=== PATIENT | female | born 1940 | race Caucasian/White ===

== ENCOUNTER → 2017-01-12 | Outpatient (CLI) | payer MEDICARE ==
--- NOTE | 2017-01-12 10:32 | US ---
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 Headaches EXAM MEASUREMENTS: RIGHT: Peak Systolic Velocity (PSV) cm/sec ----- Right CCA: 51.0 ----- Right ICA: 74.2 ----- Right ECA: 91.9 ICA/CCA ratio: 1.5 RIGHT: End Diastole cm/sec ----- Right CCA: 11.8 ----- Right ICA: 13.7 ----- Right ECA: 6.3 LEFT: Peak Systolic Velocity (PSV) cm/sec ----- Left CCA: 66.9 ----- Left ICA: 87.8 ----- Left ECA: 75.7 ICA/CCA ratio: 1.3 LEFT: End Diastole cm/sec ----- Left CCA: 12.0 ----- Left ICA: 29.6 ----- Left ECA: 8.7 VERTEBRALS (direction of flow): Right Vertebral: Antegrade Left Vertebral: Antegrade Mild atherosclerotic changes noted bilaterally. No hemodynamically significant stenosis. Limited due to tortuosity of vessels and CCA branching high in neck. Grayscale, color Doppler, spectral Doppler imaging performed of the carotid arteries IMPRESSION: No hemodynamic significant stenosis of the proximal internal carotid arteries bilaterall y by Doppler criteria, an indirect measurement of carotid stenosis
--- NOTE | 2017-01-12 12:08 | ECHOF ---
Referral Reason:I34.0 MV insufficiency MEASUREMENTS -------- HEIGHT: 127.0 cm WEIGHT: 59.0 kg BP: 170/74 RVIDd: 2.4 cm (< 3.3) IVSd: 1.0 cm (0.6 - 1.1) LVIDd: 4.3 cm (3.9 - 5.3) LVPWd: 0.8 cm (0.6 - 1.1) IVSs: 1.6 cm LVIDs: 2.7 cm LVPWs: 1.1 cm LA Diam: 3.6 cm (2.7 - 3.8) LAESV Index (A-L): 32.40 ml/m Ao Diam: 3.3 cm (2.0 - 3.7) AV Cusp: 1.7 cm (1.5 - 2.6) LA Diam: 3.5 cm (2.7 - 3.8) MV EXCURSION: 10.022 mm (> 18.000) MV EF SLOPE: 64 mm/s (70 - 150) EPSS: 0.5 cm MV E Greg: 0.47 m/s MV DecT: 303 ms MV A Greg: 0.80 m/s MV E/A Ratio: 0.58 RAP: 5.00 mmHg RVSP: 33.39 mmHg FINDINGS -------- Sinus rhythm. This was a technically good study. There is mild concentric left ventricular hypertrophy. Overall left ventricular systolic function is low-normal with, an EF between 50 - 55 %. The right ventricle is normal in size. LA is midly dilated 29-33ml/m2. The right atrial size is normal. There is mild aortic valve sclerosis. There is no evidence of aortic regurgitation. Mild mitral annular calcification present. Mild mitral regurgitation is present. Mild tricuspid regurgitation present. There is no evidence of pulmonary hypertension. The right ventricular systolic pressure, as measured by Doppler, is 33.39mmHg. There is no pulmonic regurgitation present. The aortic root size is normal. There is no pericardial effusion. CONCLUSIONS -------- 1. There is mild concentric left ventricular hypertrophy. 2. Overall left ventricular systolic function is low-normal with, an EF between 50 - 55 %. 3. LA is midly dilated 29-33ml/m2. 4. There is mild aortic valve sclerosis. 5. Mild mitral annular calcification present. 6. Mild mitral regurgitation is present. 7. Mild tricuspid regurgitation present. 8. There is no evidence of pulmonary hypertension. 9. The right ventricular systolic pressure, as measured by Doppler, is 33.39mmHg. TERRAZZO ROLLER: Priscilla Caballero RDCS
== END | disposition home or self-care (01) ==
LOC: RADUSMAIN 09:17
PROVIDERS: ATTEND Internal Medicine Geriatric Medicine
DX: I34.0 Nonrheumatic mitral (valve) insufficiency (principal); I65.29 Occlusion and stenosis of unspecified carotid artery
CPT/HCPCS: 93306; 93880

== ENCOUNTER → 2017-07-05 | Outpatient (CLI) | payer MEDICARE ==
--- NOTE | 2017-07-06 13:52 | MM ---
Reason for exam: screening (asymptomatic). Last mammogram was performed 1 year and 1 month ago. History: Patient is postmenopausal. Benign MG stereo VAD BX LT of the left breast, March 19, 2014. Benign right mammotome panel of the right breast, February 28, 2007. Took estrogen for 9 years beginning at age 51. Took progesterone for 9 years beginning at age 51. Physical Findings: A clinical breast exam by your physician is recommended on an annual basis and results should be correlated with mammographic findings. MG Screening Mammo w CAD Bilateral CC and MLO view(s) were taken. Prior study comparison: June 10, 2016, bilateral MG screening mammo w CAD. May 07, 2015, bilateral MG screening mammo w CAD. The breast tissue is heterogeneously dense. This may lower the sensitivity of mammography. No suspicious abnormality in the left breast. There is a new 5mm asymmetry in the outer right breast at middle depth. ASSESSMENT: Incomplete: need additional imaging evaluation, BI-RAD 0 RECOMMENDATION: Special view mammogram of the right breast. If lesion persists on supplemental views, image directed ultrasound is recommended. [facility] will attempt to contact patient to return for supplemental views and ultrasound if indicated.
== END | disposition home or self-care (01) ==
LOC: RADMAMWWP 14:26
PROVIDERS: ATTEND Internal Medicine Geriatric Medicine
DX: Z12.31 Encounter for screening mammogram for malignant neoplasm of breast (principal)
CPT/HCPCS: 77067

== ENCOUNTER → 2017-07-14 | Outpatient (CLI) | payer MEDICARE ==
--- NOTE | 2017-07-14 10:04 | MM ---
Reason for exam: additional evaluation requested from abnormal screening. Last mammogram was performed less than 1 month ago. History: Patient is postmenopausal. Benign MG stereo VAD BX LT of the left breast, March 19, 2014. Benign right mammotome panel of the right breast, February 28, 2007. Took estrogen for 9 years beginning at age 51. Took progesterone for 9 years beginning at age 51. Physical Findings: Nurse did not find any significant physical abnormalities on exam. MG Work Up Mamm w CAD RT CC and MLO view(s) were taken of the right breast. Prior study comparison: July 05, 2017, bilateral MG screening mammo w CAD. June 10, 2016, bilateral MG screening mammo w CAD. May 07, 2015, bilateral MG screening mammo w CAD. March 06, 2014, bilateral MG screening mammo w CAD. January 04, 2013, bilateral digital screening mammo w/CAD. The breast tissue is heterogeneously dense. This may lower the sensitivity of mammography. No persisting abnormalities on the LM view, with tight spot compression asymmetric densities become less pronounced. 6 month follow up is recommended. These results were verbally communicated with the patient and result sheet given to the patient on 07/14/17. ASSESSMENT: Probably benign, BI-RAD 3 RECOMMENDATION: Follow-up diagnostic mammogram of the right breast in 6 months.
== END | disposition home or self-care (01) ==
LOC: RADMAMWWP 09:12
PROVIDERS: ATTEND Internal Medicine Geriatric Medicine
DX: R92.8 Other abnormal and inconclusive findings on diagnostic imaging of breast (principal)
CPT/HCPCS: 77065

== ENCOUNTER → 2017-12-08 | Outpatient (CLI) | payer MEDICARE ==
--- NOTE | 2017-12-08 12:51 | MR ---
EXAMINATION TYPE: MR cervical spine wo con DATE OF EXAM: 12/08/2017 COMPARISON: NONE HISTORY: 77-year-old female Neck and shoulder pain TECHNIQUE: Multiplanar, multisequence images of the cervical spine were acquired. Findings: Partially empty sella incidentally noted. No craniocervical junction of the body, predental space widening, or prevertebral soft tissue swellin g. 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 There is moderate multilevel degenerative disc disease with degenerated, desiccated, and narrowed dis cs with disc osteophyte complexes. Trace grade 1 retrolisthesis at C5-C6. Scattered ligamentum flavum thickening and facet and uncovertebral joint degenerative changes also pr esent. At C2-C3, mild left-sided facet arthropathy without significant canal or foraminal stenosis. At C3-C4, uncovertebral joint and facet degenerative change contributes to mild left neuroforaminal s tenosis. No significant spinal canal stenosis. At C4-C5, there is broad-based disc osteophyte complex with ligamentum flavum thickening and left gre ater than right facet/uncovertebral joint arthropathy. Changes result in moderate left neuroforaminal stenosis with very mild narrowing of the spinal canal. At C5-C6, there is disc osteophyte complex, facet arthropathy, ligamentum flavum thickening, and left greater than right uncovertebral joint arthropathy. There is a trace grade 1 retrolisthesis and mild spinal canal stenosis with near abutment of both the dorsal and ventral cord but no cord flattening. Changes result in a severe left and moderate right neuroforaminal stenosis at this level. At C6-C7, discussed by complex with uncovertebral joint and facet degenerative change. This causes ve ry mild narrowing of the spinal canal with moderate left greater than right neuroforaminal stenosis. At C7-T1, mild facet degenerative change without canal or foraminal stenosis. No suspicious bone marrow replacement. No T2-weighted cord signal abnormality. IMPRESSION: 1. Moderate multilevel degenerative disc disease as well as scattered ligamentum flavum thickening an d moderate to marked facet and uncovertebral joint arthropathy. 2. Trace degenerative grade 1 retrolisthesis at C5-C6. The remaining alignment is maintained. 3. At C5-C6, changes cause a mild overall spinal canal stenosis with near abutment of both the dorsal and ventral cord but no cord flattening. Severe left and moderate right neuroforaminal stenosis here . 4. Lesser degree of mild canal narrowing at C3-C4, C4-C5, and C6-C7. No sekou canal compromise. 5. Additional variable moderate neuroforaminal stenoses as outlined above. 6. 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
== END | disposition home or self-care (01) ==
LOC: RADMRIMAIN 10:46
PROVIDERS: ATTEND Internal Medicine Rheumatology
DX: M48.02 Spinal stenosis, cervical region (principal); M99.71 Connective tissue and disc stenosis of intervertebral foramina of cervical region; M43.12 Spondylolisthesis, cervical region; M50.30 Other cervical disc degeneration, unspecified cervical region; M46.82 Other specified inflammatory spondylopathies, cervical region
CPT/HCPCS: 72141

== ENCOUNTER → 2018-01-20 | Outpatient (CLI) | payer MEDICARE ==
--- NOTE | 2018-01-22 09:59 | MM ---
Reason for exam: follow-up at short interval from prior study. Last mammogram was performed 6 months ago. History: Patient is postmenopausal. Benign MG stereo VAD BX LT of the left breast, March 19, 2014. Benign right mammotome panel of the right breast, February 28, 2007. Took estrogen for 9 years beginning at age 51. Took progesterone for 9 years beginning at age 51. Physical Findings: Nurse did not find any significant physical abnormalities on exam. MG Diagnostic Mammo RT w CAD CC and MLO view(s) were taken of the right breast. Prior study comparison: July 14, 2017, right breast MG work up mamm w CAD RT. July 05, 2017, bilateral MG screening mammo w CAD. June 10, 2016, bilateral MG screening mammo w CAD. The breast tissue is heterogeneously dense. This may lower the sensitivity of mammography. Finding: There are benign vascular, round calcifications in the right breast. No discrete abnormality right breast. These results were verbally communicated with the patient and result sheet given to the patient on 01/20/18. ASSESSMENT: Benign, BI-RAD 2 RECOMMENDATION: Return to routine screening mammogram schedule for both breasts.
== END | disposition home or self-care (01) ==
LOC: RADMAMWWP 12:57
PROVIDERS: ATTEND Internal Medicine Geriatric Medicine
DX: R92.8 Other abnormal and inconclusive findings on diagnostic imaging of breast (principal)
CPT/HCPCS: 77065

== ENCOUNTER → 2018-09-09 | Outpatient (CLI) | payer MEDICARE ==
--- NOTE | 2018-09-12 07:58 | MM ---
Reason for exam: screening (asymptomatic). Last mammogram was performed 8 months ago. History: Patient is postmenopausal. Benign MG stereo VAD BX LT of the left breast, March 19, 2014. Benign right mammotome panel of the right breast, February 28, 2007. Took estrogen for 9 years beginning at age 51. Took progesterone for 9 years beginning at age 51. Physical Findings: A clinical breast exam by your physician is recommended on an annual basis and results should be correlated with mammographic findings. MG Screening Mammo w CAD Bilateral CC and MLO view(s) were taken. Prior study comparison: January 20, 2018, right breast MG diagnostic mammo RT w CAD. July 14, 2017, right breast MG work up mamm w CAD RT. The breast tissue is heterogeneously dense. This may lower the sensitivity of mammography. There are benign appearing round calcifications bilaterally. Previous mammotome biopsy in the left breast. There is no discrete abnormality. ASSESSMENT: Benign, BI-RAD 2 RECOMMENDATION: Routine screening mammogram of both breasts in 1 year.
== END | disposition home or self-care (01) ==
LOC: RADMAMWWP 10:09
PROVIDERS: ATTEND Internal Medicine Geriatric Medicine
DX: Z12.31 Encounter for screening mammogram for malignant neoplasm of breast (principal)
CPT/HCPCS: 77067

== ENCOUNTER → 2020-02-08 | Outpatient (CLI) | payer MEDICARE ==
--- NOTE | 2020-02-08 18:40 | ECHOF ---
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 This was a technically adequate study. The left ventricular size is normal. Left ventricular wall thickness is normal. Overall left vent ricular systolic function is mildly impaired with, an EF between 45 - 50 %. The right ventricle is normal in size. Normal LA size by volume 22+/-6 ml/m2. The right atrial size is normal. There is mild aortic valve sclerosis. There is mild aortic regurgitation. Mild mitral annular calcification present. Mild mitral regurgitation is present. [id number] tricuspid regurgitation present. Right ventricular systolic pressure is normal at < 35 mmHg. The right ventricular systolic pressure, as measured by Doppler, is 31.53mmHg. Trace/mild (physiologic) pulmonic regurgitation. The aortic root size is normal. There is no pericardial effusion. CONCLUSIONS -------- 1. Left ventricular wall thickness is normal. 2. Overall left ventricular systolic function is mildly impaired with, an EF between 45 - 50 %. 3. Normal LA size by volume 22+/-6 ml/m2. 4. There is mild aortic valve sclerosis. 5. There is mild aortic regurgitation. 6. Mild mitral regurgitation is present. 7. [id number] tricuspid regurgitation present. 8. Trace/mild (physiologic) pulmonic regurgitation. TATTOO TECHNICIAN: Priscilla Caballero RDCS
== END | disposition home or self-care (01) ==
LOC: RADECHMAIN 15:48
PROVIDERS: ATTEND Internal Medicine Geriatric Medicine
DX: I08.3 Combined rheumatic disorders of mitral, aortic and tricuspid valves (principal)
CPT/HCPCS: 93306

== ENCOUNTER → 2020-02-26 | Outpatient (CLI) | payer MEDICARE ==
--- NOTE | 2020-02-26 14:11 | ECHOS ---
STRESS ECHOCARDIOGRAM LUMASON: - Vial INDICATIONS: Heart disease. MEDICATIONS: Metformin, Amlodipine, Benazpril, Carvidiolol, Humira, Lantus, Glipizide. BASELINE HEART RATE: 65 BASELINE BLOOD PRESSURE: 180/68 MAXIMUM HEART RATE: 121 MAXIMUM BLOOD PRESSURE: 190/63 85% MPHR: 119 100% MPHR: 140 METS: 5.8 MAXIMUM STAGE REACHED: 2 TOTAL EXERCISE TIME: 4:00 CLINICAL INFORMATION: Baseline rhythm is a sinus mechanism, rate of 65, normal axis and intervals. Normal echocardiogram. Baseline blood pressure 180/68 mmHg. Patient exercised on Ranjit protocol for 4 minute reaching peak rate 121 beats per minute which is equal to 86% maximum predicted heart rate. Peak blood pressure 190/83 mmHg. Test was terminated due to fatigue. There were no chest pains. Electrocardiograph monitoring revealed a [address]-segment depression that improved in recovery. FINDINGS: Baseline echocardiogram revealed mild global hypokinesis at peak exercise, there is a mild area of worsening hypokinesis involving the apical anteroseptal wall. RESULT: 1. Average exercise tolerance with borderline positive electrocardiograph stress testing. 2. Abnormal stress echocardiogram with evidence of stress-induced ischemia involving the apical anteroseptal wall. MMODL / IJN: [id number] /
== END | disposition home or self-care (01) ==
LOC: RADNMMAIN 09:28
PROVIDERS: ATTEND Nurse Practitioner Gerontology
DX: R94.39 Abnormal result of other cardiovascular function study (principal); I08.3 Combined rheumatic disorders of mitral, aortic and tricuspid valves; I37.1 Nonrheumatic pulmonary valve insufficiency; I25.89 Other forms of chronic ischemic heart disease
CPT/HCPCS: 93351

== ENCOUNTER → 2020-03-14 | Day surgery (SDC) | payer MEDICARE ==
[2020-03-08 17:38] VITALS: BMI 24.6
[~2020-03-14] MED LIST: ADALIMUMAB SQ SCH; ALPRAZolam 0.25 MG TAB PO PRN; ALPRAZolam 0.5 MG TAB PO PRN; AMLODIPINE BESYLATE PO SCH; ASPIRIN 325 MG TAB PO ONE; ASPIRIN 81 MG ONE; BENAZEPRIL PO SCH; IOPAMIDOL-370 125ML BTL INJ ONE; LIDOCAINE 1% INJ 10MG/ML (20 ML MDV) SQ ONE; NITROGLYCERIN SL TABS 0.4 MG TAB SUBLINGUAL PRN; NON FORMULARY DRUG (Aspirin [Adult Low Dose Aspirin Ec] 81 MG Tablet.Dr) PO SCH; NON FORMULARY DRUG (Calcium Carbonate [Calcium] 600 MG Tablet) PO SCH; NON FORMULARY DRUG (Insulin Glargine 100 UNIT/ML Vial) SQ SCH; RX INFO: IV CONTRAST WAS GIVEN 1 EACH MISC MISCELLANE PRN; SODIUM CHLORIDE 0.9% 1,000 ML IV SCH; SODIUM CHLORIDE 0.9% 1,000 ML in EMPTY BAG 1 BAG IV ONE; VERAPAMIL SYRINGE (5 MG/10 ML) INTRAARTER ONE; [UNRECOGNIZED DRUG - OTHER] PO SCH; carvediloL 6.25 MG TAB PO SCH; fentaNYL (PF) 50 MCG/ML 2 ML AMP IV ONE; predniSONE 5 MG TAB PO SCH
[2020-03-14 06:35] LABS: Glucose,Whole Blood 143 mg/dL (75-99)
[2020-03-14 06:43] LABS: Basophils # (A) 0.1 k/uL (0-0.2); Basophils % (A) 1 %; Eosinophils # (A) 0.2 k/uL (0-0.7); Eosinophils % (A) 2 %; HCT 39.7 % (34.0-46.0); Lymphocytes # (A) 2.2 k/uL (1.0-4.8); Lymphocytes % (A) 32 %; MCH 28.5 pg (25.0-35.0); MCHC 32.7 g/dL (31.0-37.0); MCV 87.3 fL (80.0-100.0); Mean Platelet Volume 7.3; Monocytes # (A) 0.5 k/uL (0-1.0); Monocytes % (A) 7 %; Neutrophils # (A) 3.9 k/uL (1.3-7.7); Neutrophils % (A) 57 %; Platelet Count 222 k/uL (150-450); RBC 4.55 m/uL (3.80-5.40); RDW 13.3 % (11.5-15.5); WBC 6.9 k/uL (3.8-10.6)
[2020-03-14 06:45] VITALS: RESP 18; TEMP 98.7
[2020-03-14 06:52] LABS: Calcium 9.9 mg/dL (8.4-10.2)
[2020-03-14] MEDS: MIDAZOLAM 2 MG/2 ML VIAL IV ONE ×2 (07:58→08:05)
[2020-03-14 12:59] VITALS: BP 126/68; PULSE 52
--- NOTE | 2020-03-14 16:42 | CC ---
CARDIAC CATHETERIZATION REPORT Mrs. Khoury is an 79-year-old female with a known history of hypertension and diabetes mellitus who has been complaining of some dyspnea and vague discomfort in the chest. She underwent a stress echocardiogram that revealed evidence of inducible ischemia. In view of that, recommendation was made regarding cardiac catheterization. The procedure, its risks and complications were discussed with the patient, who was in full understanding and agreement. PROCEDURE DESCRIPTION: Patient was brought to the laborer yard in a fasting, semi-sedated state after receiving fentanyl and Benadryl and achieving moderate conscious sedated state. Using Xylocaine anesthesia and Seldinger technique, a 6-Maori sheath was introduced in the right radial artery. Selective right and left coronary angiography was performed using 5- Maori 3-1/2 bend right and left Bernadette catheters. Multiple views were taken of the arteries, including hemiaxial views. Following that, a 5-Maori tight pigtail catheter was introduced into the left ventricle and a 30-degree GILLIAM view of the left ventricle was obtained. Following that, catheter and sheath were removed. Hemostasis was obtained with deployment of a TR band. There was no immediate complication. Patient was returned to her room in stable condition. Of note, the patient received 3000 units of intravenous heparin as well as intra-arterial verapamil. FINDINGS: FLUOROSCOPY: There was mild calcification involving the proximal LAD. LEFT MAIN: This is a large-sized vessel bifurcating into left circumflex and left anterior descending artery. Left main coronary artery has no evidence of high-grade stenosis. LEFT ANTERIOR DESCENDING ARTERY: This is a large-sized vessel reaching toward the apex with a wrap around the apex segment giving rise to a large diagonal branch. At the takeoff of the diagonal branch there is calcification noted involving the LAD. The LAD at that segment as well as the diagonal branch has about 30% plaque. The rest of the vessel has no high-grade stenosis. LEFT CIRCUMFLEX: This is a nondominant vessel giving rise to a large obtuse marginal branch. The left circumflex has mild intimal disease of 10% to 20% without any evidence of high-grade stenosis. RIGHT CORONARY ARTERY: This is a large dominant vessel bifurcating distally into PDA and posterolateral segment and branches. The right coronary artery in mid segment has a 20% plaque. The rest of the vessel has no high-grade stenosis. LEFT VENTRICULOGRAM: Left ventriculogram was performed in 30-degree GILLIAM view and revealed normal left ventricular size and systolic function. Ejection fraction is 55%. There was no significant mitral regurgitation. HEMODYNAMICS: There was no gradient across the aortic valve. The left ventricular end- diastolic pressure is about 20 mmHg. CONCLUSION: 1. Calcified left anterior descending artery. 2. Mild triple-vessel coronary artery disease. 3. Preserved left ventricular size and systolic function. RECOMMENDATIONS: In view of findings and anatomy, I have recommended continued medical therapy with the aggressive coronary risk modifications that have been initiated. Those findings and recommendations were discussed with the patient and her family, and they are in full understanding and agreement. Duration of sedation was 17 minutes. MMODL / IJN: [id number] /
--- NOTE | 2020-03-14 16:48 | LTR ---
March 14, 2020 To: Dr. Gal Mckenzie Re: Noemi Khoury (38) Dear Dr. Mckenzie, I had the pleasure of performing cardiac catheterization on Mrs. Khoury at [facility] on March 14, and a full copy of the procedure note is being forwarded to you. In brief, she was found to have calcified left anterior descending artery with mild triple-vessel coronary artery disease, and based on those findings I have recommended continued medical therapy with the aggressive coronary risk modifications that have been initiated. Thank you again for allowing me to participate in her care. Please feel free to call with any questions. Sincerely yours, Margarita Sexton M.D. ADRIÁN / ESTELLE: [id number] /
== END ==
LOC: CATHCVL 06:08
PROVIDERS: ATTEND Internal Medicine Interventional Cardiology
DX: I25.10 Atherosclerotic heart disease of native coronary artery without angina pectoris (principal); R94.39 Abnormal result of other cardiovascular function study; R06.00 Dyspnea, unspecified; R07.89 Other chest pain; I42.8 Other cardiomyopathies; R53.83 Other fatigue; I10 Essential (primary) hypertension; E11.9 Type 2 diabetes mellitus without complications; R01.1 Cardiac murmur, unspecified; Z98.890 Other specified postprocedural states; Z79.4 Long term (current) use of insulin; Z79.899 Other long term (current) drug therapy; Z79.52 Long term (current) use of systemic steroids; Z88.1 Allergy status to other antibiotic agents; Z90.49 Acquired absence of other specified parts of digestive tract; Z87.891 Personal history of nicotine dependence; Z82.3 Family history of stroke
CPT/HCPCS: 93458; 80048; 85025; C1769; C1894; J2250; J2001; J3010; J1644; Q9967

== ENCOUNTER → 2020-05-13 | Outpatient (CLI) | payer MEDICARE ==
--- NOTE | 2020-05-14 07:17 | US ---
EXAMINATION TYPE: US kidneys/renal and bladder DATE OF EXAM: 05/13/2020 COMPARISON: CT 06/06/2017, 06/12/2016 CLINICAL HISTORY: N30.21 CHRONIC CYSTITIS. EXAM MEASUREMENTS: Right Kidney: 9.0 x 5.0 x 4.6 cm Left Kidney: 9.7 x 4.1 x 3.5 cm Post Void Residual Volume: 150 mL Right Kidney: No hydronephrosis. Cyst visualized upper pole measuring 2cm. Possible parapelvic cyst visualized Left Kidney: No hydronephrosis or masses seen Bladder: wnl Bilateral Jets seen: yes Normal Post Void Residual: No no hydronephrosis or nephrolithiasis. IMPRESSION: Right renal cysts stable from previous CT scan.
== END | disposition home or self-care (01) ==
LOC: RADUSWWP 16:16
PROVIDERS: ATTEND Urology
DX: N28.1 Cyst of kidney, acquired (principal); N30.21 Other chronic cystitis with hematuria; Z88.1 Allergy status to other antibiotic agents; Z88.5 Allergy status to narcotic agent
CPT/HCPCS: 76770

== ENCOUNTER → 2020-05-24 | Outpatient (CLI) | payer MEDICARE ==
--- NOTE | 2020-05-27 11:46 | MM ---
Reason for exam: screening (asymptomatic). Last mammogram was performed 1 year and 8 months ago. History: Patient is postmenopausal. Benign MG stereo VAD BX LT of the left breast, March 19, 2014. Benign right mammotome panel of the right breast, February 28, 2007. Took estrogen for 9 years beginning at age 51. Took progesterone for 9 years beginning at age 51. Physical Findings: A clinical breast exam by your physician is recommended on an annual basis and results should be correlated with mammographic findings. MG Screening Mammo w CAD Bilateral CC and MLO view(s) were taken. Prior study comparison: September 09, 2018, bilateral MG screening mammo w CAD. January 20, 2018, right breast MG diagnostic mammo RT w CAD. The breast tissue is heterogeneously dense. This may lower the sensitivity of mammography. Stable benign calcifications. There is no discrete abnormality. No significant changes when compared with prior studies. ASSESSMENT: Benign, BI-RAD 2 RECOMMENDATION: Routine screening mammogram of both breasts in 1 year.
== END | disposition home or self-care (01) ==
LOC: RADMAMWWP 16:13
PROVIDERS: ATTEND Internal Medicine Geriatric Medicine
DX: Z12.31 Encounter for screening mammogram for malignant neoplasm of breast (principal)
CPT/HCPCS: 77067

== ENCOUNTER → 2021-02-26 | Outpatient (CLI) | payer MEDICARE ==
--- NOTE | 2021-02-27 09:08 | XR ---
Abdomen HISTORY: Right-sided lower abdominal cramping, R 10.84 Frontal view the abdomen submitted, no comparisons Surgical clips are present in the right upper quadrant. There is no evident bowel obstruction or pneu moperitoneum, gas pattern is nonspecific. Bone mineralization is within normal limits. Lung bases not entirely included on the exam. Probable phleboliths are present within the pelvis. IMPRESSION: Postop change.
== END | disposition home or self-care (01) ==
LOC: RADXRMAIN 16:35
PROVIDERS: ATTEND Nurse Practitioner Gerontology
DX: R10.31 Right lower quadrant pain (principal); Z98.890 Other specified postprocedural states
CPT/HCPCS: 74018

== ENCOUNTER 2022-06-07 09:33 | Emergency (ER) | payer MEDICARE ==
[2022-06-07] MEDS ORDERED: SODIUM CHLORIDE 0.9% 1,000 ML IV ONE (10:34)
[2022-06-07] MEDS ORDERED: DIPHENOX-ATROP 2.5-0.025 MG 1 EACH TAB PO STA (10:34)
--- NOTE | 2022-06-07 10:36 | ED ---
General Adult HPI - General Chief complaint: Nausea/Vomiting/Diarrhea Stated complaint: Diarrhea Time Seen by Provider: 06/07/22 09:50 Source: patient, RN notes reviewed, old records reviewed Mode of arrival: ambulatory Limitations: no limitations - History of Present Illness Initial comments: This is an 81-year-old female presents emergency department stating that on Wednesday she was having vomiting and diarrhea. Patient states yesterday she no longer had any vomiting but continued to have diarrhea and again today she started having diarrhea and talk to her primary medical care doctor and he told to come to the emergency department. Patient states she worries that she's dehydrated. Patient denies any abdominal pain. Patient denies any fever c hills. Patient denies any chest pain or difficulty breathing. Patient denies having any antibiotics in the last couple of weeks. Patient denies any lightheadedness dizziness. Patient denies headache patient denies numbness weakness. - Related Data Home Medications Medication Instructions Recorded Confirmed Adalimumab [Humira] 10 mg SQ Q14D 06/06/17 03/14/20 Calcium Carbonate [Calcium] 600 mg PO DAILY 06/06/17 03/14/20 Insulin Glargine [Lantus] 10 unit SQ HS 06/06/17 03/14/20 amLODIPine BESYLATE/BENAZEPRIL 1 cap PO DAILY 06/06/17 03/14/20 [amLODIPine BESYLATE/BENAZEPRIL 5-40 mg] carvediloL [Coreg] 6.25 mg PO BID 06/06/17 03/14/20 glipiZIDE [Glucotrol] 10 mg PO BID 06/06/17 03/14/20 metFORMIN HCL [Glucophage] 500 mg PO BID 06/06/17 03/14/20 Aspirin [Adult Low Dose Aspirin EC] 81 mg PO DAILY 03/08/20 03/14/20 Cannabidiol (Cbd) [Epidiolex] 1 dose TOPICAL DAILY PRN 03/08/20 03/14/20 Cranberry Fruit Extract [Cranberry] 200 mg PO DAILY 03/08/20 03/14/20 predniSONE 5 mg PO DAILY 03/08/20 03/14/20 Allergies Allergy/AdvReac Type Severity Reaction Status Date / Time cephalexin [From Keflex] Allergy Rash/Hives Verified 06/07/22 09:48 morphine Allergy Nausea & Verified 06/07/22 09:48 Vomiting Review of Systems ROS Statement: Those systems with pertinent positive or pertinent negative responses have been documented in the HPI. ROS Other: All systems not noted in ROS Statement are negative. Past Medical History Past Medical History: Diabetes Mellitus, Hypertension, Myocardial Infarction ([place]), Pulmonary Embolus ([place]), Rheumatoid Arthritis ([place]) Last Myocardial Infarction Date:: unknown History of Any Multi-Drug Resistant Organisms: None Reported Past Surgical History: Cholecystectomy, Heart Catheterization Additional Past Surgical History / Comment(s): frozen shoulder lt Past Anesthesia/Blood Transfusion Reactions: Motion Sickness, Postoperative Nausea & Vomiting (PONV) Past Psychological History: No Psychological Hx Reported Smoking Status: Never smoker Past Alcohol Use History: None Reported Past Drug Use History: None Reported General Exam - General Exam Comments Initial Comments: GENERAL: Patient is well-developed and well-nourished. Patient is nontoxic and well- hydrated and is in no acute distress. ENT: Neck is soft and supple. No significant lymphadenopathy is noted. Oropharynx is clear. Moist mucous membranes. Neck has full range of motion without eliciting any pain. EYES: The sclera were anicteric and conjunctiva were pink and moist. Extraocular movements were intact and pupils were equal round and reactive to light. Eyelids were unremarkable. PULMONARY: Unlabored respirations. Good breath sounds bilaterally. No audible rales rhonchi or wheezing was noted. CARDIOVASCULAR: There is a regular rate and rhythm without any murmurs gallops or rubs. ABDOMEN: Soft and nontender with normal bowel sounds. SKIN: Skin is clear with no lesions or rashes and otherwise unremarkable. NEUROLOGIC: Patient is alert and oriented x3. Cranial nerves II through XII are grossly intact. Motor and sensory are also intact. Normal speech, volume and content. Symmetrical smile. MUSCULOSKELETAL: Normal extremities with adequate strength and full range of motion. No lower extremity swelling or edema. No calf tenderness. LYMPHATICS: No significant lymphadenopathy is noted PSYCHIATRIC: Normal psychiatric evaluation. Limitations: no limitations Course Vital Signs 06/07/22 06/07/22 09:45 12:41 Temperature 98.4 F 98.2 F Pulse Rate 69 63 Respiratory 18 19 Rate Blood Pressure 126/70 130/99 O2 Sat by Pulse 99 100 Oximetry Medical Decision Making - Medical Decision Making Was pt. sent in by a medical professional or institution? @ -No Did you speak to anyone other than the patient for history? @ -No Did you review nursing and triage notes? @ -Agree with nursing triage notes Were old charts reviewed? @ -No Differential Diagnosis? @ -C. diff, gastroenteritis, food poisoning EKG interpreted by me (3pts min.)? @ -None X-rays interpreted by me (1pt min.)? @ -None CT interpreted by me (1pt min.)? @ -None U/S interpreted by me (1pt. min.)? @ -None What testing was considered but not performed? (CT, X-rays, U/S, labs)? Why? @No What meds were considered but not given? Why? @ -No Did you discuss the management of the patient with other professionals? @ -No Did you reconcile home meds? @ -No Was smoking cessation discussed for >3mins.? @ -[none] Was critical care preformed (if so, how long)? @ -[none] Were there social determinants of health that impacted care today? How? (Homelessness, low income, unemployed, alcoholism, drug addiction, transportation, low edu. Level, literacy, decrease access to med. care, alf, rehab)? @ -No Was there de-escalation of care discussed even if they declined? (Discuss DNR or withdrawal of care, Hospice)? @ -No What co-morbidities impacted this encounter? (DM, HTN, Smoking, COPD, CAD, Cancer, CVA, Hep., AIDS, mental health diagnosis, sleep apnea, morbid obesity)? @ -No Was patient admitted / discharged? @ -Patient will be discharged home. Patient received Lomotil in the emergency department and given 1/2 L of fluid. Patient was doing considerably better and able to tolerate by mouth fluids and was comfortable to be discharged home. Undiagnosed new problem with uncertain prognosis? @ -[none] Drug Therapy requiring intensive monitoring for toxicity (Heparin, Nitro, Insulin, Cardizem)? @ -[none] Were any procedures done? @ -[none] Diagnosis/symptom? @ -Acute diarrhea Acute, or Chronic, or Acute on Chronic? @ -Acute Uncomplicated (without systemic symptoms) or Complicated (systemic symptoms)? @ -Uncomplicated Side effects of treatment? @ -No Exacerbation, Progression, or Severe Exacerbation] @ -No Poses a threat to life or bodily function? @ -No - Lab Data Result diagrams: 06/07/22 10:58 06/07/22 10:58 Lab Results 06/07/22 06/07/22 Range/Units 10:58 10:58 WBC 4.5 (3.8-10.6) k/uL RBC 4.33 (3.80-5.40) m/uL Hgb 13.0 (11.4-16.0) gm/dL Hct 38.7 (34.0-46.0) % MCV 89.5 (80.0-100.0) fL MCH 30.1 (25.0-35.0) pg MCHC 33.7 (31.0-37.0) g/dL RDW 13.1 (11.5-15.5) % Plt Count 223 (150-450) k/uL MPV 9.0 Neutrophils % 70 % Lymphocytes % 18 % Monocytes % 8 % Eosinophils % 1 % Basophils % 1 % Neutrophils # 3.1 (1.3-7.7) k/uL Lymphocytes # 0.8 L (1.0-4.8) k/uL Monocytes # 0.3 (0-1.0) k/uL Eosinophils # 0.1 (0-0.7) k/uL Basophils # 0.0 (0-0.2) k/uL Sodium 138 (137-145) mmol/L Potassium 4.4 (3.5-5.1) mmol/L Chloride 109 H (98-107) mmol/L Carbon Dioxide 22 (22-30) mmol/L Anion Gap 7 mmol/L BUN 19 H (7-17) mg/dL Creatinine 0.80 (0.52-1.04) mg/dL Est GFR (CKD-EPI)AfAm 80 (>60 ml/min/1.73 sqM) Est GFR (CKD-EPI)NonAf 69 (>60 ml/min/1.73 sqM) Glucose 114 H (74-99) mg/dL Calcium 9.1 (8.4-10.2) mg/dL Total Bilirubin 0.4 (0.2-1.3) mg/dL AST 33 (14-36) U/L ALT 20 (4-34) U/L Alkaline Phosphatase 77 (38-126) U/L Total Protein 6.9 (6.3-8.2) g/dL Albumin 4.0 (3.5-5.0) g/dL Disposition Clinical Impression: Acute diarrhea Disposition: HOME SELF-CARE Instructions (If sedation given, give patient instructions): Acute Diarrhea (ED) Additional Instructions: Patient should take Lomotil as prescribed Is patient prescribed a controlled substance at d/c from ED?: No Referrals: Gal Mckenzie MD [Primary Care Provider] - 1-2 days Time of Disposition: 12:50
[2022-06-07 12:23] LABS: Basophils % (A) 1 %; Eosinophils # (A) 0.1 k/uL (0-0.7); Eosinophils % (A) 1 %; HCT 38.7 % (34.0-46.0); Lymphocytes # (A) 0.8 k/uL (1.0-4.8); Lymphocytes % (A) 18 %; MCH 30.1 pg (25.0-35.0); MCHC 33.7 g/dL (31.0-37.0); MCV 89.5 fL (80.0-100.0); Monocytes # (A) 0.3 k/uL (0-1.0); Monocytes % (A) 8 %; Neutrophils # (A) 3.1 k/uL (1.3-7.7); Neutrophils % (A) 70 %; Platelet Count 223 k/uL (150-450); RBC 4.33 m/uL (3.80-5.40); RDW 13.1 % (11.5-15.5); WBC 4.5 k/uL (3.8-10.6)
[2022-06-07 12:40] LABS: Calcium 9.1 mg/dL (8.4-10.2); Potassium 4.4 mmol/L (3.5-5.1); Total Bilirubin 0.4 mg/dL (0.2-1.3); Total Protein 6.9 g/dL (6.3-8.2)
[2022-06-07 12:41] VITALS: BP 130/99; PULSE 63; RESP 19; TEMP 98.2
[2022-06-07] MEDS ORDERED: DIPHENOX-ATROP STARTER PACK 8 TAB BTL PO STA (12:50)
== END 2022-06-07 13:02 | disposition home or self-care (01) ==
LOC: EC 09:33
DX: R19.7 Diarrhea, unspecified (principal); E11.9 Type 2 diabetes mellitus without complications; I10 Essential (primary) hypertension; I25.2 Old myocardial infarction; I26.99 Other pulmonary embolism without acute cor pulmonale; Z79.4 Long term (current) use of insulin; Z79.84 Long term (current) use of oral hypoglycemic drugs; Z79.82 Long term (current) use of aspirin; Z88.1 Allergy status to other antibiotic agents; Z79.899 Other long term (current) drug therapy; Z88.5 Allergy status to narcotic agent
CPT/HCPCS: 36415; 80053; 85025; 96360; 99284

== ENCOUNTER → 2022-08-27 | Outpatient (CLI) | payer MEDICARE ==
--- NOTE | 2022-08-27 14:37 | BD ---
EXAMINATION TYPE: Axial Bone Density DATE OF EXAM: 08/27/2022 CLINICAL HISTORY: 81 years old Female. ICD-10 CODE: M81.0 OSTEOPOROSIS Height: 58.25 Weight: 129.4 FRAX RISK QUESTIONS: Alcohol (3 or more units per day): no Family History (Parent hip fracture): no Glucocorticoids (More than 3mos): no History of Fracture in Adulthood: Humerus, rib, Secondary Osteoporosis: 1. Type 1 Diabetes: no 2. Hyperthyroidism: no 3. Menopause before 45: no 4. Malnutrition: no 5. Chronic liver disease: no Rheumatoid Arthritis: yes Current Tobacco Use: no RISK FACTORS HISTORY OF: Hip Fracture (Right/Left): no Spine Fracture: no History of Wrist Fracture: no Surgery to Spine/Hip(right/left)/Wrist (right/left): no Family History of Osteoporosis: no Active: no Diet low in dairy products/other sources of calcium: yes Postmenopausal woman: yes Take estrogen and/or progesterone medications: no Lost more than 2 inches in height since high school: yes Frequent falls: no Poor Health: no Hyperparathyroidism: no Adrenal Insufficiency: no MEDICATIONS: Prednisone or other steroids: no Thyroid Medications: no Osteoporosis Medications: no Additional Medications: Metformin, glipizide, BP Meds, Cholesterol Meds, Lantis, Multi Vit., Rinvoq Additional History: EXAM MEASUREMENTS: Bone mineral densitometry was performed using the TMAT System. Bone mineral density as measured about the Lumbar spine is: ----- L1-L4(G/cm2): 1.203 T Score Values are as follows: ----- L1: -0.4 ----- L2: -0.1 ----- L3: 1.1 ----- L4: 0.0 ----- L1-L4: 0.2 Z Score Values are as follows: ----- L1: 1.7 ----- L2: 2.0 ----- L3: 3.1 ----- L4: 2.0 ----- L1-L4: 2.3 Bone mineral density has: increased 1.7% since the study of 03/29/2014 Bone mineral density about the R hip (g/cm2): 0.886 Bone mineral density about the L hip (g/cm2): 0.818 T Score values are as follows: -----R Neck: -1.8 -----L Neck: -2.2 -----R Total: -1.0 -----L Total: -1.5 Z Score values are as follows: -----R Neck: 0.6 -----L Neck: 0.2 -----R Total: 1.3 -----L Total: 0.8 Bone mineral density has: decreased -1.8% since the study of 03/29/2014 FRAX%s:The graph provided illustrates 30.4%chancefor a major osteoporotic fx and a 10.4% for the hips probability for fx in 10 years time. IMPRESSION: Osteoporosis (T Score less than -2.5). There is increased fracture risk and therapy is usually indicated based on age. Re-Screen 1-2 years. NOTE: T-SCORE=SD OF THE YOUNG ADULT MEAN.
--- NOTE | 2022-08-28 08:27 | MM ---
Reason for Exam: Screening (asymptomatic). Last mammogram was performed 2 year(s) and 3 month(s) ago. Patient History: Menarche at age 12. First Full-Term at age 18. Postmenopausal. Estrogen for 9 years from age 51 until age 60. Progesterone for 9 years from age 51 until age 60. 03/19/2014, Benign Core Biopsy on the left side. 02/28/2007, Benign Core Biopsy on the right side. Risk Values: Heide 5 year model risk: 1.7%. NCI Lifetime model risk: 2.3%. Prior Study Comparison: 01/20/2018 Right Diagnostic Mammogram, [facility]. 09/09/2018 Bilateral Screening Mammogram, [facility]. 05/24/2020 Bilateral Screening Mammogram, [facility]. Tissue Density: The breast tissue is heterogeneously dense. This may lower the sensitivity of mammography. Findings: Analyzed By CAD. There is no suspicious group of microcalcifications or new suspicious mass in either breast. There are benign-appearing round calcifications bilaterally. Previous mammotome biopsy in the left breast. Overall Assessment: Benign, BI-RAD 2 Management: Screening Mammogram of both breasts in 1 year. A clinical breast exam by your physician is recommended on an annual basis and results should be correlated with mammographic findings. Electronically signed and approved by: Eric Moeller D.O.
== END | disposition home or self-care (01) ==
LOC: RADBDWWP 12:27
PROVIDERS: ATTEND Internal Medicine Geriatric Medicine
DX: Z12.31 Encounter for screening mammogram for malignant neoplasm of breast (principal); M81.0 Age-related osteoporosis without current pathological fracture; Z78.0 Asymptomatic menopausal state
CPT/HCPCS: 77063; 77067; 77080

== ENCOUNTER → 2022-09-11 | Outpatient (CLI) | payer MEDICARE ==
--- NOTE | 2022-09-11 11:26 | XR ---
EXAM TYPE: LUMBAR SPINE X RAY SERIES COMPARISON: NONE HISTORY: Pain TECHNIQUE: 4 views are submitted. FINDINGS: Alignment is anatomic. The pedicles are intact. The transverse processes are intact. There is diff use osteopenia. Lower thoracic spine there is a vacuum disc T11-T12. There is a moderate degenerative disease L4-5 and severe changes L5-S1 with facet arthropathy. Vascular calcifications noted. Minimal anterolisthesis L4 on L5. Sclerosis involving bilateral SI joints. IMPRESSION: 1. Moderate severe degenerative disc disease most marked at the thoracolumbar junction and lower lumb ar spine with minimal anterior listhesis of L4 and L5. 2. Bilateral sacroiliitis.
--- NOTE | 2022-09-11 11:28 | XR ---
EXAMINATION TYPE: XR sacrum coccyx DATE OF EXAM: 09/11/2022 COMPARISON: NONE HISTORY: Pain Three views are submitted. Sacrum is intact. SI joints demonstrate bilateral sclerosis. There is v ascular calcifications. 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 Severe degenerative disc disease lower lumbar spine with facet arthropathy. Coccyx appears to be intact. Visualized pelvic s tructures intact. IMPRESSION: 1. Bilateral sacroiliitis 2. Severe degenerative disc disease with facet arthropathy lower lumbar spine.
== END | disposition home or self-care (01) ==
LOC: RADXRMAIN 10:39
PROVIDERS: ATTEND Physician Assistant
DX: M53.3 Sacrococcygeal disorders, not elsewhere classified (principal); M51.35 Other intervertebral disc degeneration, thoracolumbar region; M43.16 Spondylolisthesis, lumbar region; M51.36 Other intervertebral disc degeneration, lumbar region; M47.816 Spondylosis without myelopathy or radiculopathy, lumbar region
CPT/HCPCS: 72100; 72220

== ENCOUNTER 2023-11-26 06:34 | Emergency (ER) | payer MEDICARE ==
[2023-11-26 06:46] VITALS: RESP 18
--- NOTE | 2023-11-26 07:30 | ED ---
General Adult HPI - General Chief complaint: Back Pain/Injury Stated complaint: Back Pain, Right Hip Pain Time Seen by Provider: 11/26/23 07:15 Source: patient, EMS, RN notes reviewed, old records reviewed Mode of arrival: EMS - History of Present Illness Initial comments: 83-year-old female presents emergency department complaining of back pain and some mild right shoulder pain. States she has had an upper respiratory infection been coughing well lately and began noticing some right lower back pain from all the coughing. States she thinks that she pulled a muscle. Has decreased range of motion because of it. States it is primarily to the right of her lower spine just above her gluteus muscle. States there is some mild radiation down into her gluteus muscle into the back of the right thigh. Denies any falls or injuries. Has been using her right arm to help compensate for this and has noticed that she has some muscle pain in the right arm as well. Worse with certain movements. No sensory deficits. No falls. No other obvious complaints. Presents for further evaluation at this time. Denies any bowel or bladder incontinence or retention. Denies any lower extremity weakness or paralysis. Denies any saddle paresthesias. - Related Data Home Medications Medication Instructions Recorded Confirmed Adalimumab [Humira] 10 mg SQ Q14D 06/06/17 03/14/20 Calcium Carbonate [Calcium] 600 mg PO DAILY 06/06/17 03/14/20 Insulin Glargine [Lantus] 10 unit SQ HS 06/06/17 03/14/20 amLODIPine BESYLATE/BENAZEPRIL 1 cap PO DAILY 06/06/17 03/14/20 [amLODIPine BESYLATE/BENAZEPRIL 5-40 mg] carvediloL [Coreg] 6.25 mg PO BID 06/06/17 03/14/20 glipiZIDE [Glucotrol] 10 mg PO BID 06/06/17 03/14/20 metFORMIN HCL [Glucophage] 500 mg PO BID 06/06/17 03/14/20 Aspirin [Adult Low Dose Aspirin EC] 81 mg PO DAILY 03/08/20 03/14/20 Cannabidiol (Cbd) [Epidiolex] 1 dose TOPICAL DAILY PRN 03/08/20 03/14/20 Cranberry Fruit Extract [Cranberry] 200 mg PO DAILY 03/08/20 03/14/20 predniSONE 5 mg PO DAILY 03/08/20 03/14/20 Previous Rx's Medication Instructions Recorded Lidocaine 5% Patch [Lidoderm 5% 1 patch TOPICAL DAILY PRN 14 Days 11/26/23 Patch] #14 patch Allergies Allergy/AdvReac Type Severity Reaction Status Date / Time cephalexin [From Keflex] Allergy Rash/Hives Verified 11/26/23 06:46 morphine Allergy Nausea & Verified 11/26/23 06:46 Vomiting Review of Systems ROS Statement: Those systems with pertinent positive or pertinent negative responses have been documented in the HPI. Review of Systems: CONST: Denies fever EYES: Denies blurry vision ENT: Denies nasal congestion C/V: Denies Chest pain RESP: Denies shortness of breath GI: Denies abdominal pain : Denies dysuria SKIN: Denies rash. MSK: endorses back pain NEURO: Denies headache ROS Other: All systems not noted in ROS Statement are negative. Past Medical History Past Medical History: Diabetes Mellitus, Hypertension, Myocardial Infarction ([place]), Pulmonary Embolus ([place]), Rheumatoid Arthritis (RA) Last Myocardial Infarction Date:: unknown History of Any Multi-Drug Resistant Organisms: None Reported Past Surgical History: Cholecystectomy, Heart Catheterization Additional Past Surgical History / Comment(s): frozen shoulder lt Past Anesthesia/Blood Transfusion Reactions: Motion Sickness, Postoperative Nausea & Vomiting (PONV) Past Psychological History: No Psychological Hx Reported Smoking Status: Never smoker Past Alcohol Use History: None Reported Past Drug Use History: None Reported General Exam - General Exam Comments Initial Comments: General: Appears in mild distress secondary to back pain HEAD: Normal with no signs of head trauma. EYES: EOMI. ENT: Hearing grossly intact. RESPIRATORY: No respiratory distress. C/V: Regular rate and rhythm. Pulses 2+ intact throughout and symmetrical. ABD: Abdomen is nondistended. EXT: No obvious deformity. Relatively normal range of motion of all 4 extremities with some reduction in the right upper and right lower secondary to pain. Tenderness to palpation of the right-sided paraspinal muscles of the lower lumbar spine. No midline lumbar spine tenderness to palpation. No midline cervical, thoracic spine tenderness to palpation. Some tenderness to palpation over the right AC joint with reduced range of motion above 90 degrees at the right shoulder. This seems to be secondary to pain as I am able to passively range it higher. Vascular intact throughout. SKIN: No rashes or lesions observed on exposed skin. NEURO: Alert and oriented. Course Vital Signs 11/26/23 11/26/23 06:44 09:50 Temperature 98 F 98.1 F Pulse Rate 62 70 Respiratory 18 18 Rate Blood Pressure 172/81 168/68 O2 Sat by Pulse 100 99 Oximetry Medical Decision Making - Medical Decision Making Was pt. sent in by a medical professional or institution (, HEMALATHA, LABOR TRAINING MANAGER, urgent care, hospital, or shelter...) When possible be specific @ -No Did you speak to anyone other than the patient for history (EMS, parent, family, police, friend...)? What history was obtained from this source @ -No Did you review nursing and triage notes (agree or disagree)? Why? @ -I reviewed and agree with nursing and triage notes Were old charts reviewed (outside hosp., previous admission, EMS record, old EKG, old radiological studies, urgent care reports/EKG's, shelter records)? Report findings @ -No old charts were reviewed Differential Diagnosis (chest pain, altered mental status, abdominal pain women, abdominal pain men, vaginal bleeding, weakness, fever, dyspnea, syncope, headache, dizziness, GI bleed, back pain, seizure, CVA, palpatations, mental health, musculoskeletal)? @ -Differential Musculoskeletal Muscular strain, contusion, ligament sprain, fracture, arthritis, septic arthritis, bursitis, cellulitis, muscle spasm, nerve compression, DVT, arterial occlusion, herpes zoster, electrolyte abnormality, tumor.... This is not meant to be in all inclusive list EKG interpreted by me (3pts min.). @ -None done X-rays interpreted by me (1pt min.). @ -Shoulder x-ray shows AC joint arthropathy and arthritis. CT interpreted by me (1pt min.). @ -CT lumbar spine reveals disc bulging, arthritis, degenerative changes. U/S interpreted by me (1pt. min.). @ -None done What testing was considered but not performed or refused? (CT, X-rays, U/S, labs)? Why? @ -None What meds were considered but not given or refused? Why? @ -None Did you discuss the management of the patient with other professionals (professionals i.e. , HEMALATHA, LABOR TRAINING MANAGER, lab, RT, psych nurse, health care social worker, electrician master, teacher, hospital security officer, case planner)? Give summary @ -No Was smoking cessation discussed for >3mins.? @ -No Was critical care preformed (if so, how long)? @ -No Were there social determinants of health that impacted care today? How? (Homelessness, low income, unemployed, alcoholism, drug addiction, transportation, low edu. Level, literacy, decrease access to med. care, detention, rehab)? @ -No Was there de-escalation of care discussed even if they declined (Discuss DNR or withdrawal of care, Hospice)? DNR status @ -No What co-morbidities impacted this encounter? (DM, HTN, Smoking, COPD, CAD, Cancer, CVA, ARF, Chemo, Hep., AIDS, mental health diagnosis, sleep apnea, morbid obesity)? @ -None Was patient admitted / discharged? Hospital course, mention meds given and route, prescriptions, significant lab abnormalities, going to OR and other pertinent info. @ -Based on the patient's presentation and physical exam, presents emergency department complaining of back pain as well as shoulder pain. Seems to be musculoskeletal in nature. We will obtain x-ray of the right shoulder as well as CT of the lumbar spine due to her age. Patient was in agreement this plan. No red flag signs suggestive of cauda equina syndrome. These injuries are atraumatic. She will be symptomatically treated with a Tylenol 3, IM Toradol, lidocaine patch, Zofran. Patient was in agreement this plan. Vital signs are within acceptable limits. Imaging shows degenerative changes and some bulging disc but no other obvious finding. She is improved at this time. She will be discharged home with a prescription for lidocaine patches. She already has baclofen at home we will continue to Tylenol Motrin as needed. She was in agreement this plan. Strict return precautions discussed. I will provide the patient with a prescription for lidocaine patch. I instructed the patient to follow up with their PCP in the next 1-3 days.. I explained that the patient should return to the emergency department if they experience any worsening symptoms. Strict return precautions were discussed with the patient. The patient expressed understanding of these instructions. I answered all questions that the patient had. The patient was discharged home in good condition with their prescriptions and follow up information. Undiagnosed new problem with uncertain prognosis? @ -No Drug Therapy requiring intensive monitoring for toxicity (Heparin, Nitro, Insulin, Cardizem)? @ -No Were any procedures done? @ -No Diagnosis/symptom? @ -Bulging disc, muscle strain, arthritis Acute, or Chronic, or Acute on Chronic? @ -Acute Uncomplicated (without systemic symptoms) or Complicated (systemic symptoms)? @ -Uncomplicated Side effects of treatment? @ -None Exacerbation, Progression, or Severe Exacerbation] @ -No Poses a threat to life or bodily function? @ -Unlikely Disposition Clinical Impression: Bulging discs, Muscle strain, Arthritis Disposition: HOME SELF-CARE Condition: Good Instructions (If sedation given, give patient instructions): Acute Low Back Pain (ED) Prescriptions: Lidocaine 5% Patch [Lidoderm 5% Patch] 1 patch TOPICAL DAILY PRN 14 Days #14 patch PRN Reason: Pain Is patient prescribed a controlled substance at d/c from ED?: No Referrals: Gal Mckenzie MD [Primary Care Provider] - 1-2 days Time of Disposition: 09:31
[2023-11-26] MEDS: ONDANSETRON 4 MG TAB PO STA (07:36)
[2023-11-26] MEDS: Acetaminophen-Codeine 300-30mg TAB PO STA (07:36)
[2023-11-26] MEDS: KETOROLAC 15 MG/ML 1 ML VIAL IM STA (07:37)
[2023-11-26] MEDS: LIDOCAINE 4% PATCH TOPICAL STA (07:37)
--- NOTE | 2023-11-26 08:04 | XR ---
EXAMINATION TYPE: XR shoulder limited RT DATE OF EXAM: 11/26/2023 COMPARISON: NONE HISTORY: Pain TECHNIQUE: Three views are submitted. FINDINGS: The osseous structures are intact. There is no acute fracture or dislocation. Mild AC joint arthropa thy. Mild generalized osteopenia. IMPRESSION: 1. Mild AC joint arthropathy.
--- NOTE | 2023-11-26 09:12 | CT ---
EXAMINATION TYPE: CT lumbar spine wo con DATE OF EXAM: 11/26/2023 8:29 AM COMPARISON: None HISTORY: Lumbar pain CT DLP: 598.2 mGycm Automated exposure control for dose reduction was used. Unenhanced CT of the lumbar spine was performed. Bone and soft tissue window settings are submitted as well as coronal and sagittal reconstructions. A small hiatal hernia. Postcholecystectomy changes. Tiny bilateral effusions with basilar atelectasis favored. Simple-appearing right renal cyst. Diverticulosis of the colon. Bilateral SI joint arthropa thy. Bladder is distended. Mild bilateral pelvocaliectasis. L1-L2: There is a broad-based disc bulge and right paracentral protrusion. Effacing the thecal sac. N eural foramina are patent. L2-L3: Degenerative disc disease with circumferential disc bulging but no canal stenosis. No foramina l encroachment. L3-L4: There is a left paracentral and lateral disc herniation. There is significant left-sided peña inal encroachment. L4-L5: Broad-based disc bulging or protrusion. There is facet arthropathy and ligamentum flavum hyper trophy. Mild left foraminal encroachment. Facet arthropathy and ligamentum flavum hypertrophy with mi ld central stenosis. L5-S1: Severe degenerative disc disease. Facet arthropathy. Broad-based disc bulging. There is modera te bilateral foraminal encroachment. Diffuse demineralization with multilevel vacuum disc and degenerative disc disease. IMPRESSION: 1. Disc bulging and left paracentral disc protrusion or small herniation L1-L2. 2. Left paracentral and lateral disc herniation L3-L4. 3. Broad-based disc bulging with mild central stenosis and hypertrophic changes L4-L5. 4. Broad-based disc bulging with severe degenerative disc disease L5-S1. 5 There is distended and there is mild bilateral hydronephrosis. 6. Lumbar findings are more properly assessed with MRI. Therefore, MRI recommended.
[2023-11-26 09:51] VITALS: BP 168/68; PULSE 70; TEMP 98.1
== END 2023-11-26 09:50 | disposition home or self-care (01) ==
LOC: EC 06:34
DX: S46.911A Strain of unspecified muscle, fascia and tendon at shoulder and upper arm level, right arm, initial encounter (principal); M51.36 Other intervertebral disc degeneration, lumbar region; M19.011 Primary osteoarthritis, right shoulder; Z88.1 Allergy status to other antibiotic agents; Z88.8 Allergy status to other drugs, medicaments and biological substances; X58.XXXA Exposure to other specified factors, initial encounter
CPT/HCPCS: 73020; 72131; 99284; 96372; J1885

== ENCOUNTER → 2024-04-13 | Outpatient (CLI) | payer MEDICARE | END | disposition home or self-care (01) | LOC: RADMAMWWP 13:41 | PROVIDERS: ATTEND Internal Medicine Geriatric Medicine | DX: Z12.31 Encounter for screening mammogram for malignant neoplasm of breast (principal) | CPT/HCPCS: 77063; 77067 ==

== ENCOUNTER → 2024-04-25 | Outpatient (CLI) | payer MEDICARE ==
--- NOTE | 2024-04-25 11:24 | USB ---
Reason for Exam: Additional evaluation requested from prior study. Patient History: Menarche at age 12. First Full-Term at age 18. Postmenopausal. Estrogen for 9 years from age 51 until age 60. Progesterone for 9 years from age 51 until age 60. 03/19/2014, Benign Core Biopsy on the left side. 02/28/2007, Benign Core Biopsy on the right side. Risk Values: Heide 5 year model risk: 1.5%. NCI Lifetime model risk: 1.7%. Technique: Method: Targeted. Prior Study Comparison: 05/24/2020 Bilateral Screening Mammogram, [facility]. 08/27/2022 Bilateral MG 3D screening mammo w/cad, [facility]. 04/13/2024 Bilateral MG 3D screening mammo w/cad, [facility]. Findings: The lateral section of the breast of the right breast, the axilla of the right breast and the retroareolar of the right breast were scanned. A complete US of all four quadrants of the breast and retro-areolar region were reviewed. No solid or cystic masses are identified.. Slightly hypoechoic area 9 6:00 position 6 cm from nipple is present. This is nonspecific. Mammographic findings appear suspicious. Management based on the mammogram. Stereotactic core biopsy utilizing a lateral approach is recommended. Overall Assessment: Suspicious, BI-RAD 4 Management: Stereotactic Core Biopsy of the right breast. A clinical breast exam by your physician is recommended on an annual basis and results should be correlated with mammographic findings. This exam should not preclude additional follow-up of suspicious palpable abnormalities. Results were given to the patient verbally at the time of exam. [facility], , 04/25/2024 11:13 AM. Electronically signed and approved by: Jb Son D.O. Radiologis
--- NOTE | 2024-04-25 11:26 | MM ---
Reason for Exam: Additional evaluation requested from abnormal screening. Last screening mammogram was performed less than 1 month ago. Patient History: Menarche at age 12. First Full-Term at age 18. Postmenopausal. Estrogen for 9 years from age 51 until age 60. Progesterone for 9 years from age 51 until age 60. 03/19/2014, Benign Core Biopsy on the left side. 02/28/2007, Benign Core Biopsy on the right side. Risk Values: Heide 5 year model risk: 1.5%. NCI Lifetime model risk: 1.7%. Prior Study Comparison: 06/21/1995 Screening Mammogram, Unknown. 06/18/1996 Screening Mammogram, Unknown. 06/28/1996 Screening Mammogram, Unknown. 01/04/2013 Bilateral Screening Mammogram, [facility]. 03/06/2014 Bilateral Screening Mammogram, [facility]. 03/08/2014 Left Diagnostic Mammogram, [facility]. 09/18/2014 Left Diagnostic Mammogram, [facility]. 05/07/2015 Bilateral Screening Mammogram, [facility]. 06/10/2016 Bilateral Screening Mammogram, [facility]. 07/05/2017 Bilateral Screening Mammogram, [facility]. 07/14/2017 Right Diagnostic Mammogram, [facility]. 01/20/2018 Right Diagnostic Mammogram, [facility]. 09/09/2018 Bilateral Screening Mammogram, [facility]. 05/24/2020 Bilateral Screening Mammogram, [facility]. 08/27/2022 Bilateral MG 3D screening mammo w/cad, [facility]. 04/13/2024 Bilateral MG 3D screening mammo w/cad, [facility]. Tissue Density: Right: The breasts are heterogeneously dense, which may obscure small masses. Findings: Analyzed By CAD. Impression there is persistence of the irregular nodular density in the mid right breast. Mediolateral view appears unremarkable. Additional evaluation with ultrasound is recommended. Overall Assessment: Incomplete: need additional imaging evaluation, BI-RAD 0 Management: Diagnostic Breast Ultrasound of the right breast. A negative mammogram report should not preclude additional follow up of suspicious palpable abnormalities. Patient should continue monthly self breast exam. A clinical breast exam by your physician is recommended on an annual basis and results should be correlated with mammographic findings. Note on Heide scores and lifetime risk: 1. A Heide score greater than 3% is considered moderate risk. If this is the case, consider specialist referral to assess eligibility for a risk reducing agent. 2. If overall lifetime risk for the development of breast cancer is 20% or higher, the patient may qualify for future screening with alternating mammogram and breast MRI. [facility], , 04/25/2024 11:23 AM. Electronically signed and approved by: Jb Son D.O. Radiologis
== END | disposition home or self-care (01) ==
LOC: RADMAMWWP 10:17
PROVIDERS: ATTEND Internal Medicine Geriatric Medicine
DX: R92.8 Other abnormal and inconclusive findings on diagnostic imaging of breast (principal); R92.333 Mammographic heterogeneous density, bilateral breasts; Z78.0 Asymptomatic menopausal state
CPT/HCPCS: 77065; 76642; G0279; 77061

== ENCOUNTER → 2024-06-05 | Day surgery (SDC) | payer MEDICARE ==
[~2024-06-05] MED LIST changes: -ADALIMUMAB SQ SCH; -ALPRAZolam 0.5 MG TAB PO PRN; -AMLODIPINE BESYLATE PO SCH; -ASPIRIN 325 MG TAB PO ONE; -ASPIRIN 81 MG ONE; -BENAZEPRIL PO SCH; -IOPAMIDOL-370 125ML BTL INJ ONE; -LIDOCAINE 1% INJ 10MG/ML (20 ML MDV) SQ ONE; -NITROGLYCERIN SL TABS 0.4 MG TAB SUBLINGUAL PRN; -NON FORMULARY DRUG (Aspirin [Adult Low Dose Aspirin Ec] 81 MG Tablet.Dr) PO SCH; -NON FORMULARY DRUG (Calcium Carbonate [Calcium] 600 MG Tablet) PO SCH; -NON FORMULARY DRUG (Insulin Glargine 100 UNIT/ML Vial) SQ SCH; -RX INFO: IV CONTRAST WAS GIVEN 1 EACH MISC MISCELLANE PRN; -SODIUM CHLORIDE 0.9% 1,000 ML IV SCH; -SODIUM CHLORIDE 0.9% 1,000 ML in EMPTY BAG 1 BAG IV ONE; -VERAPAMIL SYRINGE (5 MG/10 ML) INTRAARTER ONE; -[UNRECOGNIZED DRUG - OTHER] PO SCH; -carvediloL 6.25 MG TAB PO SCH; -fentaNYL (PF) 50 MCG/ML 2 ML AMP IV ONE; -predniSONE 5 MG TAB PO SCH
--- NOTE | 2024-06-05 10:20 | MM ---
Reason for Exam: Screening (asymptomatic). Last screening mammogram was performed 2 month(s) ago. Patient History: Menarche at age 12. First Full-Term at age 18. Postmenopausal. Estrogen for 9 years from age 51 until age 60. Progesterone for 9 years from age 51 until age 60. 03/19/2014, Benign Core Biopsy on the left side. 02/28/2007, Benign Core Biopsy on the right side. Risk Values: Heide 5 year model risk: 1.5%. NCI Lifetime model risk: 1.7%. Prior Study Comparison: 08/27/2022 Bilateral MG 3D screening mammo w/cad, [facility]. 04/13/2024 Bilateral MG 3D screening mammo w/cad, [facility]. 04/25/2024 Right MG 3D work up w/cad RT, [facility]. Tissue Density: Right: The breasts are heterogeneously dense, which may obscure small masses. Findings: Analyzed By CAD. Patient comes today for stereotactic core needle biopsy of the right breast. Additional views were performed for biopsy planning purposes. We note some density being present on older priors the same location antral right MLO view middle depth. Given the lack of an ultrasound correlate and no persisting abnormality on the 3-D lateral view, a tight spot compression view was performed and shows no clear persisting abnormality. Superimposition shadow is favored and six-month precautionary follow-up is recommended. Overall Assessment: Probably benign, BI-RAD 3 Management: Diagnostic Mammogram of the right breast in 6 months. Rather than stereotactic core needle biopsy at this time. Additional views performed today favor superimposition shadow. Results were given to the patient verbally at the time of exam. Patient should continue monthly self-breast exams. A clinical breast exam by your physician is recommended on an annual basis. This exam should not preclude additional follow-up of suspicious palpable abnormalities. Note on Heide scores and lifetime risk: 1. A Heide score greater than 3% is considered moderate risk. If this is the case, consider specialist referral to assess eligibility for a risk reducing agent. 2. If overall lifetime risk for the development of breast cancer is 20% or higher, the patient may qualify for future screening with alternating mammogram and breast MRI. [facility], , 06/05/2024 10:18 AM. Electronically signed and approved by: Yesenia Davenport M.D. Radiologist
== END ==
LOC: RADMAMWWP 09:51
PROVIDERS: ATTEND Surgery
DX: R92.8 Other abnormal and inconclusive findings on diagnostic imaging of breast (principal)

== ENCOUNTER → 2024-10-04 | Outpatient (CLI) | payer MEDICARE ==
[2024-10-04 11:10] LABS: African American GFR (CKD) 66 (>60 ml/min/1.73 sqM); Blood Urea Nitrogen 22 mg/dL (7-17); Non-African American GFR(CKD) 57 (>60 ml/min/1.73 sqM)
--- NOTE | 2024-10-04 14:00 | CT ---
EXAMINATION TYPE: CT abdomen pelvis w con CT DLP: 465.9 mGycm, Automated exposure control for dose reduction was used. DATE OF EXAM: 10/04/2024 12:33 PM COMPARISON: CTA thoracoabdominal aorta 06/06/2017 CLINICAL INDICATION:Female, 83 years old with history of R10.9 UNSPECIFIED ABDOMINAL PAIN; abdominal pain TECHNIQUE: Standard CT of the abdomen and pelvis following the administration of 100 cc of Isovue 3 00 IV contrast material and oral contrast. Coronal and sagittal reformats were performed. FINDINGS: LOWER CHEST: Bilateral lower lobe linear scarring and/or atelectasis. Left lower lobe calcified granu veronique. Cardiomegaly. Elevation of the right hemidiaphragm. ABDOMEN LIVER: Unremarkable GALLBLADDER AND BILE DUCTS: The gallbladder is surgically absent. No biliary duct dilatation. PANCREAS: Unremarkable. SPLEEN: Unremarkable. ADRENAL GLANDS: Unremarkable. KIDNEYS AND URETERS: No evidence of hydronephrosis or renal calculus. The kidneys enhance symmetrical ly. Right mid kidney exophytic 2.4 cm simple appearing cyst. No follow up recommended. Contrast is de monstrated within both collecting systems on the delayed phase. PELVIS BLADDER: Moderately distended urinary bladder with cystocele. REPRODUCTIVE: Unremarkable. ABDOMEN & PELVIS STOMACH AND BOWEL: Small hiatal hernia, duodenum is unremarkable. The appendix is within normal limit s. Distal colonic diverticulosis without evidence for acute diverticulitis. Enteric contrast reaches the sigmoid colon. No focal bowel wall thickening or surrounding inflammatory changes. No evidence of bowel obstruction. PERITONEUM: No evidence of pneumoperitoneum or free fluid. VASCULATURE: Mild atherosclerotic calcifications are present throughout the abdominal aorta and its b ranches. No evidence of aortic aneurysm. MUSCULOSKELETAL: No acute osseous abnormalities. Mild disc degeneration changes are present throughou t the thoracolumbar spine. LYMPH NODES: No evidence for lymphadenopathy. SOFT TISSUE/ABDOMINAL WALL: Tiny fat filled umbilical hernia. IMPRESSION: 1. Moderately distended urinary bladder with cystocele. 2. Colonic diverticulosis without evidence for acute diverticulitis. 3. Small hiatal hernia. [facility], , 10/04/2024 1:57 PM
== END | disposition home or self-care (01) ==
LOC: RADCTMAIN 10:07
PROVIDERS: ATTEND Internal Medicine Geriatric Medicine
DX: K57.30 Diverticulosis of large intestine without perforation or abscess without bleeding (principal); N81.10 Cystocele, unspecified; K44.9 Diaphragmatic hernia without obstruction or gangrene
CPT/HCPCS: 82565; 84520; 74177; 36415; Q9967